=== PATIENT | male | born 1995 | race African-American/Black ===

== ENCOUNTER 2021-04-23 21:12 | Emergency (ER) | payer MEDICAID ==
[~2021-04-23] VITALS: Ht 162.6 cm; Wt 53.5 kg
[2021-04-23 21:15] VITALS: BP 130/94
--- NOTE | 2021-04-23 21:18 | NUR ---
TO LOBBY A/W BED AMBULATORY
--- NOTE | 2021-04-23 22:40 | NUR ---
SEEN AND EXAMINED BY JESE
--- NOTE | 2021-04-23 22:45 | NUR ---
Dr. Wong examining patient.
[2021-04-23] MEDS ORDERED: PERM5CRE3 TP (23:19)
[2021-04-23 23:51] VITALS: BP 130/94
--- NOTE | 2021-04-23 23:52 | NUR ---
PT SEEN AND ASSESSED BY ERMD. NO NURSING INTERVENTIONS NEEDED
--- NOTE | 2021-04-23 23:52 | NUR ---
Patient discharged with v/s stable. Written and verbal after care instructions given and explained. Patient verbalized understanding. Ambulatory with steady gait. All questions addressed prior to discharge. Advised to follow up with PMD.
== END 2021-04-23 23:52 | disposition home or self-care (01) ==
LOC: MED 21:12
DX: L29.9 Pruritus, unspecified (principal); Z79.899 Other long term (current) drug therapy
CPT/HCPCS: 99282